=== PATIENT | female | born 1985 | race Hispanic/Latino ===

== ENCOUNTER 2019-01-16 07:17 | Emergency (ER) | payer BC, MEDICAID, OTHER ==
[2019-01-16 07:36] LABS: APPEARANCE,URINE CLOUDY (CLEAR); BILIRUBIN,URINE NEGATIVE (NEGATIVE); COLOR,URINE YELLOW (YELLOW); GLUCOSE, URINE (UA) NEGATIVE (NEGATIVE); HCG,QUAL RESULT NEGATIVE (NEGATIVE); KETONES,URINE NEGATIVE (NEGATIVE); LEUKOCYTE ESTERASE ,URINE SMALL (NEGATIVE); NITRATE,URINE NEGATIVE (NEGATIVE); OCCULT BLOOD,URINE LARGE (NEGATIVE); PROTEIN,URINE 30 mg/dL (NEGATIVE); UROBILINOGEN,URINE 0.2 mg/dL (0.2-1.0)
[2019-01-16 07:43] LABS: AMPHET/METH SCREEN,URINE NEGATIVE (NEGATIVE); BARBITURATE SCREEN, URINE NEGATIVE (NEGATIVE); BENZODIAZEPINES SCREEN,URINE NEGATIVE (NEGATIVE); CANNABINOID SCREEN,URINE NEGATIVE (NEGATIVE); COCAINE SCREEN,URINE NEGATIVE (NEGATIVE); OPIATE SCREEN,URINE NEGATIVE (NEGATIVE); PHENCYCLIDINE SCREEN,URINE NEGATIVE (NEGATIVE)
[2019-01-16 08:01] LABS: BACTERIA,URINE Moderate /HPF (None Seen)
== END 2019-01-16 08:28 | disposition home or self-care (01) ==
LOC: EDH 07:17
DX: N39.0 Urinary tract infection, site not specified (principal); R31.9 Hematuria, unspecified; J45.909 Unspecified asthma, uncomplicated; Z90.49 Acquired absence of other specified parts of digestive tract
CPT/HCPCS: 80305; 81001; 81025

== ENCOUNTER 2020-02-15 20:08 | Inpatient (IN) | payer BC ==
[~2020-02-15] VITALS: Ht 147.3 cm; Wt 100.2 kg
[2020-02-16] MEDS ORDERED: GUAIFENESIN-DM 200/20 MG 10 ML PO PRN (03:00)
[2020-02-16] MEDS ORDERED: ACETAMINOPHEN 325 MG TAB PO PRN ×2 (03:00)
[2020-02-16] MEDS ORDERED: ONDANSETRON HCL 4 MG/2 ML VIAL IV PRN (03:00)
[2020-02-16] MEDS ORDERED: AZITHROMYCIN 500MG+NS 250ML 250 ML IV SCH ×2 (03:00→09:00)
[2020-02-16] MEDS ORDERED: AZITHROMYCIN 500MG+NS 250ML 250 ML IV ONE (03:58)
[2020-02-16] MEDS ORDERED: ACETAMINOPHEN 325 MG TAB ONE (08:24)
[2020-02-16] MEDS ORDERED: FAMOTIDINE/PF 20 MG/2 ML VIAL IV ONE (08:24)
[2020-02-16] MEDS ORDERED: ASCORBIC ACID 500 MG TAB PO SCH (09:00)
[2020-02-16] MEDS ORDERED: FAMOTIDINE/PF 20 MG/2 ML VIAL IV SCH ×2 (09:00→21:00)
[2020-02-16] MEDS ORDERED: ZINC SULFATE 220 CAPSULE PO SCH (09:00)
[2020-02-16] MEDS ORDERED: ONDANSETRON HCL 4 MG/2 ML VIAL ONE (11:38)
--- NOTE | 2020-02-16 13:56 | NUR ---
DISCHARGE INSTRUCTION GIVEN AND IV REMOVED , PATIENT GIVEN SITE FOR COVID-19 RETESTING , INSTRUCTION ON ISOLATION .
[2020-02-17] MEDS ORDERED: AZITHROMYCIN 500MG+NS 250ML 250 ML IV SCH (08:45)
== END 2020-02-16 13:58 | disposition home or self-care (01) | DRG 178 ==
LOC: EDH 20:08 → EDHIP 02-16 02:46
PROVIDERS: ADMIT Internal Medicine; ATTEND Internal Medicine
DX: U07.1 COVID-19 (principal); Z68.42 Body mass index [BMI] 45.0-49.9, adult; J45.909 Unspecified asthma, uncomplicated; E66.01 Morbid (severe) obesity due to excess calories; E87.6 Hypokalemia; B34.9 Viral infection, unspecified; Z90.49 Acquired absence of other specified parts of digestive tract